=== PATIENT | male | born 1985 | race Two or more races ===

== ENCOUNTER 2017-04-20 15:16 | Outpatient (CLI) | payer OTHER | END 2017-04-20 15:17 | disposition EMS.NT | LOC: EMS 15:16 | PROVIDERS: ATTEND Surgery | DX: R55 Syncope and collapse (principal) ==

== ENCOUNTER 2017-04-20 15:39 | Emergency (ER) | payer OTHER ==
[2017-04-20] MEDS ORDERED: SODIUM CHLORIDE 0.9% 1,000 ML IV ONE (15:47)
[2017-04-20] MEDS ORDERED: ACETAMINOPHEN 325 MG TABLET PO STA (15:47)
--- NOTE | 2017-04-20 15:51 | ED Physician Documentation ---
History of Present Illness - Stated complaint Stated Complaint: SYNCOPE - Chief complaint Chief Complaint: Neuro - Additonal information Additional information: hx from pt 31 male syncope today X 2 was feeling weak all day - no LUKE CP AP no fever cough NVD - just very weak was out drinking last night more than nl for him stood up from cough, had palpitation and then syncope, fell hit head, LOC duration approx 30 sec, no seizure activity denies neck pain numbness weakness has lost 100 lb last yr, no supplements or meds, only ate yogurt and cheetos today Review of Systems Constitutional: denies: Fever, Chills Cardiac: reports: Palpitations. denies: Chest pain / pressure Respiratory: denies: Dyspnea, Cough GI: denies: Abdominal Pain, Nausea, Vomiting, Diarrhea Musculoskeletal: denies: Neck pain Neurologic: reports: Syncope, Head injury. denies: Focal weakness, Numbness, Headache Immunocompromised: denies: Immunocompromised PD PAST MEDICAL HISTORY - Past Medical History Past Medical History: No - Past Surgical History Past Surgical History: Yes - Present Medications Home Medications: Ambulatory Orders Medication Instructions Recorded Confirmed No Known Home Medications [No 04/20/17 04/20/17 Known Home Medications] - Allergies Allergies/Adverse Reactions: Allergies Allergy/AdvReac Type Severity Reaction Status Date / Time No Known Drug Allergies Allergy Verified 04/20/17 15:44 - Social History Does the pt smoke?: No Smoking Status: Never smoker PD ED PE NORMAL - Vitals Vital signs reviewed: Yes - General General: Alert and oriented X 3 - HEENT HEENT: No: Atraumatic (hematoma posterior left scalp) - Neck Neck: No bony TTP - Cardiac Cardiac: RRR - Respiratory Respiratory: No respiratory distress, Clear bilaterally - Abdomen Abdomen: Soft, Non tender - Derm Derm: Normal color - Extremities Extremities: No deformity - Neuro Neuro: Alert and oriented X 3, 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, No motor deficit, No sensory deficit, Normal speech Results - Vitals Vitals: Vital Signs - 24 hr 04/20/17 04/20/17 15:41 17:22 Temperature 36.8 C Heart Rate 73 70 Respiratory 16 16 Rate Blood Pressure 155/71 H 130/70 O2 Saturation 99 100 Oxygen O2 Source Room air - EKG (time done) 1606 Rate: Rate (enter#) (75) Rhythm: NSR Intervals: 1st degree AVB Ischemia: Non specific changes (very slight ST dept V2 V3 most likely repol but will rpt in 15-30 min for dynamic changes) 1756 Rate: Rate (enter#) (70) Rhythm: NSR Intervals: Normal [place] Ischemia: Non specific changes (as before some slight ST eleve mostly only in V2 possibly repol not completely typical, no reciprocol changes) - Labs Labs: Laboratory Tests 04/20/17 04/20/17 15:53 16:30 WBC 8.0 RBC 4.71 Hgb 14.4 Hct 41.8 L MCV 88.7 MCH 30.6 MCHC 34.5 RDW 13.3 Plt Count 263 MPV 8.3 Neut # 6.1 Lymph # 1.2 L [place] # 0.6 Eos # 0.0 Baso # 0.0 Absolute Nucleated RBC 0.00 Nucleated RBCs 0.0 Sodium 136 Potassium 3.7 Chloride 103 Carbon Dioxide 25 Anion Gap 8.0 BUN 13 Creatinine 0.6 Estimated GFR (MDRD) 156 Glucose 97 Calcium 8.6 - Rads (name of study) CTH Radiology: See rad report (neg) PD MEDICAL DECISION MAKING - ED course ED course: NSR, nl labs, neg CTH slightly abn EKG but not dynamic, not clearly ischemic, pt has no CP etc, EKG was done mostly to confirm rhythm, assess for delta waves etc by report sounds like pt was likely dehydrated and had not had much to eat given IVF and sandwich and will road test pt feeling fine up and ambulating s sx will dc to fup PMD for outpt echo and consideration of event monitor Departure - Departure Disposition: 01 Home, Self Care Clinical Impression: Syncope Qualifiers: Syncope type: unspecified Qualified Code(s): R55 - Syncope and collapse Head injury Qualifiers: Encounter type: initial encounter Qualified Code(s): S09.90XA - Unspecified injury of head, initial encounter Condition: Good Instructions: ED Fainting Unkn Cause Follow-Up: EDMOND Wallace [Provider Group] Comments: The CT of your head was fine - no skull fracture or bleeding Your blood work was fine Your EKG is slightly abnormal but in a normal rhythm which is the concern when a person passes out You may have been dehydrated and therefore dropped your blood pressure when you stood up. Since you are feeling better after IV fluids and some food, I think it is safe for you to go home for tonight But there are still some other tests I think would be beneficial to get through your PMD as an outpatient - specifically an ultrasound of your heart (called an echocardiogram) and a wear at home heart monitor. I recommend that you not work out or be deployed until these tests have been done. Forms: Activity restrictions
[2017-04-20] MEDS ORDERED: ACETAMINOPHEN 325 MG TABLET PO ONE (16:00)
[2017-04-20 16:09] LABS: BASOPHILS % (AUTO) 0.6 %; EOSINOPHILS % (AUTO) 0.5 %; HCT - HEMATOCRIT 41.8 % (42.0-52.0); HGB - HEMOGLOBIN 14.4 g/dL (14.0-18.0); LYMPHOCYTES # (AUTO) 1.2 10^3/uL (1.5-3.5); LYMPHOCYTES % (AUTO) 14.7 %; MEAN CORPUSCULAR HEMOGLOBIN 30.6 pg (27.0-31.0); MEAN CORPUSCULAR HGB CONC 34.5 g/dL (32.0-36.0); MEAN CORPUSCULAR VOLUME 88.7 fL (80.0-94.0); MEAN PLATELET VOLUME 8.3 fL (7.4-11.4); MONOCYTES # (AUTO) 0.6 10^3/uL (0.0-1.0); MONOCYTES % (AUTO) 7.9 %; NEUTROPHILS # (AUTO) 6.1 10^3/uL (1.5-6.6); NEUTROPHILS % (AUTO) 76.3 %; RED BLOOD COUNT 4.71 10^6/uL (4.70-6.10); RED CELL DISTRIBUTION WIDTH 13.3 % (12.0-15.0)
--- NOTE | 2017-04-20 16:36 | CT Preliminary Report ---
Exam: CT Head W/O IMPRESSION: Normal head CT. [facility] SITE ID: [id number]
--- NOTE | 2017-04-20 16:39 | CT Report ---
EXAM: CT HEAD EXAM DATE: 04/20/2017 04:15 PM. CLINICAL HISTORY: Syncope, hit head and loss of consciousness. COMPARISON: None. TECHNIQUE: Multiaxial CT images were obtained from the foramen magnum to the vertex. IV contrast: Non e. Reformats: Coronal. In accordance with CT protocol optimization, one or more of the following dose reduction techniques w ere utilized for this exam: automated exposure control, adjustment of mA and/or KV based on patient s ize, or use of iterative reconstructive technique. FINDINGS: Parenchyma: No intraparenchymal hemorrhage. No evidence of mass, midline shift, or CT findings of inf arction. Nance-white differentiation is distinct. Extraaxial Spaces: Normal for age. No subdural or epidural collections identified. Ventricles: Normal in size and position. Sinuses: Imaged paranasal sinuses, orbits, and mastoids show no significant abnormality. Bones: No evidence of fracture or calvarial defect. Other: None. IMPRESSION: Normal head CT. [facility] Referring Provider Line: [phone] SITE ID: [id number]
[2017-04-20 16:43] LABS: CALCIUM 8.6 mg/dL (8.5-10.3); CREATININE 0.6 mg/dL (0.6-1.2); POTASSIUM 3.7 mmol/L (3.5-5.0)
[2017-04-20 17:23] VITALS: BP 130/70
== END 2017-04-20 18:34 | disposition home or self-care (01) ==
LOC: EDUNIT# → ED 15:39
DX: R55 Syncope and collapse (principal); S09.90XA Unspecified injury of head, initial encounter; S00.03XA Contusion of scalp, initial encounter; W18.30XA Fall on same level, unspecified, initial encounter; R94.31 Abnormal electrocardiogram [ECG] [EKG]
CPT/HCPCS: 36415; 70450; 80048; 85025; 93005; 99284; A9270